=== PATIENT | female | born 1940 | race Caucasian/White ===

== ENCOUNTER 2022-06-09 12:53 | Outpatient (CLI) | payer OTHER, SELFPAY ==
--- NOTE | 2022-06-09 13:20 | CRLHL7_ITS ---
For Patients: As a result of the Cures Act, medical imaging exams and procedure reports are released immediately into your electronic medical record. You may view this report before your referring provider. If you have questions, please contact your health care provider. BILATERAL SCREENING MAMMOGRAM WITH COMPUTER-AIDED DETECTION AND TOMOSYNTHESIS TECHNIQUE: CC and MLO views were obtained. These mammographic images have been obtained using full-field digital technique. These mammographic images were interpreted with the benefit of computer-aided detection. Breast Tomosynthesis was used in this interpretation. COMPARISON FILM: 04/25/21; 04/24/20, 04/04/19 FINDINGS: The breasts are heterogeneously dense, which may obscure small masses IMPRESSION: There is no radiographic evidence for malignancy. ASSESSMENT: BI-RADS Category 1: Negative RECOMMENDATION: Routine screening mammogram in 1 year. A lay language report of this examination will be provided to the patient. Epifanio Harrington M.D. Diagnostic/Musculoskeletal Radiologist [email or web address] GALA/roxi Transcribed: 2:35 p.m. PT/Dictated by: Epifanio Harrington MD @ 06/10/2022 10:31:00 AM (Electronically Signed)
== END 2022-06-09 12:54 | disposition home or self-care (01) ==
PROVIDERS: PCP Family Medicine; Visit Provider Family Medicine
DX: Z12.31 Encounter for screening mammogram for malignant neoplasm of breast (principal); R92.2 Inconclusive mammogram
CPT/HCPCS: 77063; 77067

== ENCOUNTER 2023-05-11 08:45 | Outpatient (RCR) | payer OTHER, SELFPAY | END 2023-08-26 17:28 | disposition home or self-care (01) | PROVIDERS: PCP Family Medicine; Visit Provider Family Medicine | DX: R26.81 Unsteadiness on feet (principal); Z51.89 Encounter for other specified aftercare | CPT/HCPCS: 97110; 97162 ==

== ENCOUNTER 2023-06-15 08:51 | Outpatient (CLI) | payer OTHER, SELFPAY ==
--- NOTE | 2023-06-15 09:15 | CRLHL7_ITS ---
For Patients: As a result of the Cures Act, medical imaging exams and procedure reports are released immediately into your electronic medical record. You may view this report before your referring provider. If you have questions, please contact your health care provider. BILATERAL DIGITAL SCREENING MAMMOGRAM WITH COMPUTER-AIDED DETECTION WITH TOMOSYNTHESIS CLINICAL HISTORY: Routine screening exam. COMPARISON: 06/09/2022, 04/25/2021, 04/24/2020, 04/04/2019. TECHNIQUE: Digital mammogram in CC and MLO projections including computer-aided detection (CAD). BREAST COMPOSITION: There are scattered areas of fibroglandular density. FINDINGS: RIGHT Breast: Focal asymmetric density lateral RIGHT breast 3 cm from the nipple. LEFT Breast: No suspicious findings. IMPRESSION: RIGHT breast asymmetry/mass. RECOMMENDATIONS: Additional mammographic views of the RIGHT breast including 3D spot-compression CC/MLO. RIGHT breast ultrasound may also be required. The [facility] will contact the patient for follow-up. BI-RADS Category 0: Incomplete: Need Additional Imaging Evaluation and/or Prior Mammograms for Comparison A lay language report of this examination will be provided to the patient. Dictated by Rocky Dickerson MD @ 06/15/2023 10:16:29 AM/ALDA:roxi PT/Dictated by: Rocky Dickerson MD @ 06/15/2023 10:17:00 AM (Electronically Signed)
== END 2023-06-15 08:52 | disposition home or self-care (01) ==
PROVIDERS: PCP Family Medicine; Visit Provider Family Medicine
DX: Z12.31 Encounter for screening mammogram for malignant neoplasm of breast (principal); N63.10 Unspecified lump in the right breast, unspecified quadrant
CPT/HCPCS: 77063; 77067

== ENCOUNTER 2023-06-28 09:15 | Outpatient (CLI) | payer OTHER, SELFPAY ==
--- NOTE | 2023-06-28 09:45 | CRLHL7_ITS ---
For Patients: As a result of the Cures Act, medical imaging exams and procedure reports are released immediately into your electronic medical record. You may view this report before your referring provider. If you have questions, please contact your health care provider. DIGITAL DIAGNOSTIC RIGHT MAMMOGRAM USING TOMOSYNTHESIS AND COMPUTER-AIDED DETECTION RIGHT BREAST ULTRASOUND CLINICAL HISTORY: RIGHT breast mass/asymmetry. COMPARISON: 06/28/2023. TECHNIQUE: Digital RIGHT mammogram in two projections. Tomosynthesis and CAD utilized. Real-time ultrasound imaging of RIGHT breast with imaging documentation. BREAST COMPOSITION: There are areas of scattered fibroglandular density. FINDINGS: 3D spot compression CC/MLO RIGHT breast mammogram images submitted. Decreased conspicuity of asymmetric density. Benign vascular calcifications. Targeted RIGHT breast ultrasound performed at 9 o`clock 3 cm from the nipple. In this location, there is a solid heterogeneously hypoechoic nodule with somewhat ill-defined margins and posterior shadowing measuring 7 x 7 x 4 millimeters. IMPRESSION: Suspicious mass RIGHT breast 9 o`clock 3 cm from the nipple measuring 7 millimeters. RECOMMENDATIONS: Ultrasound-guided core needle biopsy. Results and recommendations discussed with the patient. BI-RADS Category 4: Suspicious A lay language report of this examination will be provided to the patient. Dictated by Rocky Dickerson MD @ 06/28/2023 12:40:17 PM junior/Dictated by: Rocky Dickerson MD @ 06/28/2023 12:40:00 PM (Electronically Signed)
--- NOTE | 2023-06-28 10:15 | CRLHL7_ITS ---
For Patients: As a result of the Cures Act, medical imaging exams and procedure reports are released immediately into your electronic medical record. You may view this report before your referring provider. If you have questions, please contact your health care provider. PLEASE SEE DIGITAL DIAGNOSTIC RIGHT MAMMOGRAM PERFORMED SAME DAY CRL:chani wilde/Dictated by: Rocky Dickerson MD @ 06/28/2023 12:40:00 PM (Electronically Signed)
== END 2023-06-28 09:16 | disposition home or self-care (01) ==
LOC: MAMMO 09:15
PROVIDERS: PCP Family Medicine; Visit Provider Family Medicine
DX: N63.10 Unspecified lump in the right breast, unspecified quadrant (principal); R92.8 Other abnormal and inconclusive findings on diagnostic imaging of breast
CPT/HCPCS: 76642; 77065; G0279

== ENCOUNTER 2023-06-30 07:50 | Outpatient (CLI) | payer OTHER, SELFPAY ==
--- NOTE | 2023-06-30 08:15 | CRLHL7_ITS ---
For Patients: As a result of the Century Cures Act, medical imaging exams and procedure reports are released immediately into your electronic medical record. You may view this report before your referring provider. If you have questions, please contact your health care provider. ADDENDUM: Pathology consistent with invasive ductal carcinoma. This is concordant. Appropriate action recommended. Dictated by: Rocky Dickerson MD @07/02/2023 12:22:15 PM / CRL:chani ULTRASOUND-GUIDED BREAST BIOPSY AND POST-BIOPSY DIGITAL MAMMOGRAM FOR BIOPSY MARKER PLACEMENT CLINICAL HISTORY: Suspicious lesion. COMPARISON STUDIES: 06/28/2023. TECHNIQUE: Real-time ultrasound with image documentation was used for targeting the breast lesion. Core biopsy specimens were obtained using an automated gun with a 18-gauge biopsy needle. Post-biopsy CC and ML digital mammograms were obtained to document position of the biopsy marker. CONSENT and TIME OUT: The procedure, risks, and alternatives were explained to the patient and a consent was signed. [place] Protocol was followed including pre-procedure verification that relevant information/documentation was available, reviewed and properly matched to the patient; consent accurate and complete; and equipment and supplies available. Time Out was conducted just prior to starting procedure to verify the four required elements: patient identity, correct side/site marked (if applicable), procedure, relevant images/results properly labeled and displayed (if applicable). PROCEDURE: The patient was positioned supine on the ultrasound table. The breast was prepped with ChloraPrep. 8 cc 1 percent lidocaine used for local anesthesia. Core samples were obtained. A sterile metal biopsy clip was placed percutaneously to dianna the lesion position within the breast. The specimens were placed in 10% formalin and sent to the pathology department. Pressure was held on the biopsy site until all bleeding subsided. The skin incision was closed with Steri-Strips. An ice pack was positioned over the biopsy site. Post-biopsy instructions were reviewed with the patient, and a written copy was given to her. LATERALITY: RIGHT breast. LESION: Hypoechoic shadowing solid nodule measuring 7 x 7 x 4 millimeters at 9 o`clock 3 cm from the nipple. SUSPICION FOR MALIGNANCY: High. NUMBER OF SAMPLES: 5. BIOPSY CLIP SHAPE: Oval. PROXIMITY OF CLIP TO TARGET: Within the lesion. IMPRESSION: Ultrasound-guided breast biopsy. When the pathology report is available, an addendum to this report will be made. ACR not applicable Dictated by Rocky Dickerson MD @ 06/30/2023 9:26:23 AM chani/Dictated by: Rocky Dickerson MD @ 06/30/2023 9:26:00 AM (Electronically Signed)
--- NOTE | 2023-06-30 08:45 | CRLHL7_ITS ---
For Patients: As a result of the Century Cures Act, medical imaging exams and procedure reports are released immediately into your electronic medical record. You may view this report before your referring provider. If you have questions, please contact your health care provider. PLEASE SEE ULTRASOUND-GUIDED RIGHT BREAST BIOPSY PERFORMED SAME DAY CRL:chani wilde/Dictated by: Rocky Dickerson MD @ 06/30/2023 9:26:00 AM (Electronically Signed)
== END 2023-06-30 07:51 | disposition home or self-care (01) ==
PROVIDERS: PCP Family Medicine; Visit Provider Family Medicine
DX: N63.10 Unspecified lump in the right breast, unspecified quadrant (principal); C50.911 Malignant neoplasm of unspecified site of right female breast; R92.8 Other abnormal and inconclusive findings on diagnostic imaging of breast
CPT/HCPCS: 19083; 77065; 88305; 88360; 88361; A4648; A4649

== ENCOUNTER 2023-07-23 06:52 | Day surgery (SDC) | payer OTHER, SELFPAY ==
[2023-07-23 07:10] VITALS: BP 162/85; PULSE 86; RESP 18; TEMP 36.6; O2SAT 96
[2023-07-23 07:15] VITALS: BMI 21.8
[2023-07-23] MEDS: LACTATED RINGERS 1000 ML 1,000 ML 100 ML IV (07:40)
[2023-07-23] MEDS: SODIUM CHLORIDE 0.9 % (FLUSH) 10 ML SYRINGE IVF (07:43)
--- NOTE | 2023-07-23 08:15 | CRLHL7_ITS ---
For Patients: As a result of the Cures Act, medical imaging exams and procedure reports are released immediately into your electronic medical record. You may view this report before your referring provider. If you have questions, please contact your health care provider. BREAST WIRE LOCALIZATION USING ULTRASOUND GUIDANCE CLINICAL HISTORY: RIGHT breast cancer. LATERALITY: RIGHT. LESION: Hypoechoic solid mass RIGHT breast 9 o`clock 3 cm from the nipple measuring 7 x 7 x 4 millimeters. LOCALIZATION WIRE: [place] hookwire. TECHNIQUE: The localization wire was placed using real-time ultrasound guidance with image documentation. Cranial-caudal and medial-lateral digital mammograms were obtained after localization wire placement. CONSENT and TIME OUT: The procedure, risks, and alternatives were explained to the patient and a consent was signed. [place] Protocol was followed including pre-procedure verification that relevant information/documentation was available, reviewed and properly matched to the patient; consent accurate and complete; and equipment and supplies available. Time Out was conducted just prior to starting procedure to verify the four required elements: patient identity, correct side/site marked (if applicable), procedure, relevant images/results properly labeled and displayed (if applicable). PROCEDURE: The skin was prepped with ChloraPrep and 5 cc of 1% lidocaine was injected for local anesthesia. The localization wire was placed within or near the targeted breast lesion using ultrasound guidance. The patient tolerated the procedure well. PROXIMITY OF WIRE TO LESION: The wires located within the lesion adjacent to the clip. IMPRESSION: Successful breast wire localization. ACR not applicable Dictated by Rocky Dickerson MD @ 07/23/2023 11:15:12 AM jj/Dictated by: Rocky Dickerson MD @ 07/23/2023 11:15:00 AM (Electronically Signed)
--- NOTE | 2023-07-23 09:00 | CRLHL7_ITS ---
For Patients: As a result of the Century Cures Act, medical imaging exams and procedure reports are released immediately into your electronic medical record. You may view this report before your referring provider. If you have questions, please contact your health care provider. PLEASE SEE ULTRASOUND-GUIDED RIGHT BREAST WIRE LOCALIZATION PERFORMED SAME DAY CRL:chani wilde/Dictated by: Rocky Dickerson MD @ 07/23/2023 10:07:00 AM (Electronically Signed)
[2023-07-23] MEDS: CEFAZOLIN 1 GM inj IVP (09:30)
--- NOTE | 2023-07-23 10:04 | CRLHL7_ITS ---
For Patients: As a result of the Cures Act, medical imaging exams and procedure reports are released immediately into your electronic medical record. You may view this report before your referring provider. If you have questions, please contact your health care provider. RIGHT BREAST SPECIMEN RADIOGRAPH CLINICAL HISTORY: RIGHT breast cancer. COMPARISON: 06/28/2023. FINDINGS: Two views RIGHT breast specimen submitted. Biopsied mass, biopsy clip and localization wire are present. IMPRESSION: The biopsied mass, biopsy clip and localization wire are present in the specimen. ACR not applicable Dictated by Rocky Dickerson MD @ 07/23/2023 10:32:02 AM jj/Dictated by: Rocky Dickerson MD @ 07/23/2023 10:32:00 AM (Electronically Signed)
[2023-07-23] MEDS: LIDOCAINE 1 % PF 30 ML INJECTION (10:15)
[2023-07-23] MEDS: BUPIVACAINE 0.25% 30 ML INJECTION (10:15)
[2023-07-23 10:37] VITALS: BP 131/81; PULSE 89; RESP 16; TEMP 36.7; O2SAT 94
--- NOTE | 2023-07-23 10:37 | P.ANES_ITS ---
Anesthesia Charges Start Date/Time Anesthesia Start Date: 07/23/23 Anesthesia Start Time: 09:26 Stop Date/Time Anesthesia Stop Date: 07/23/23 Anesthesia Stop Time: 10:35 Summary Extremes of Age - Over 70 or under 1: [employer]MWORK [employer]PENTER
--- NOTE | 2023-07-23 10:50 | PM.GSPRC ---
Operative Note Pre-op diagnosis: Invasive ductal carcinoma, right breast Post-op diagnosis: Same Type of Procedure: Wire localization right breast lumpectomy Indications: Patient is an 82-year-old female with new diagnosis invasive ductal carcinoma. Please see consultation note for full discussion regarding treatment options, as well as recommendations based on NCCN guidelines and choosing wisely protocol for oncologic procedures in older adults. Risks and benefits of operative intervention were discussed at length with the patient. Risks included but was not limited to: Bleeding, infection, risk of damage to surrounding structures, possible need for additional procedures and postoperative complications such as pneumonia, pulmonary emboli or UT. All questions and concerns were addressed with the patient agreeing to proceed. Procedure Description: Prior to arrival in the operating room, the patient was taken to radiology where a wire was placed to localize the previously placed clip. Based on the choosing wisely protocols the NCCN, the decision was made not to pursue a sentinel lymph node biopsy. The patient was then brought to the operating room where anesthesia was induced. The right breast and axilla were prepped and draped in the usual sterile fashion. Timeout was confirmed. Local anesthesia was infiltrated into a transverse incision near the location of the tip of the wire. Using electrocautery, the segment of breast tissue containing the tip of the wire was excised. This was sent for evaluation. Radiology called back and confirmed that the clip and wire were present within the specimen. Pathology then called back and confirmed that the margins were appropriate. The wounds were irrigated and all irrigant suctioned from the wound. Additional local anesthesia was infiltrated. The wounds were then closed in layers using absorbable suture, and Dermbond was placed over the wounds. A double wide Horace wrap was used to apply a compressive dressing. The patient was awakened without incident and taken to PACU in stable condition. Sponge, needle and instrument counts were correct x3 at the termination of the case. The patient was then woken and transported to the recovery area in stable condition. ? The patient tolerated the procedure well. Findings: Wire localized right breast cancer Anesthesia: MAC and local Surgeon: Kate Melton MD Estimated blood loss (mL): 2 Additional Specimen Information: 1. Right breast mass Condition: stable Disposition: same day Date of procedure: 07/23/23 [place] Node Biopsy for Breast Cancer Operation Performed with Curative Intent: Yes Tracers used to Identify sentinel nodes in the upfront surgery (non-neoadjuvant) setting: N/A (No sentinel node, based on choosing wisely guidelines via NCCN) Tracers used to identify sentinel nodes in the neoadjuvant setting: N/A All nodes (colored or non-colored) present at the end of a dye filled lymphatic channel were removed: Not Applicable All significantly radioactive nodes were removed: Not Applicable All palpably suspicious nodes were removed: Not Applicable Biopsy proven positive nodes marked with clips prior to chemotherapy were identified and removed: Not Applicable
[2023-07-23 10:52] VITALS: BP 145/85; PULSE 93; RESP 18; TEMP 36.7; O2SAT 95
[2023-07-23 11:11] VITALS: BP 148/96; PULSE 87; RESP 18; TEMP 36.7; O2SAT 96
[2023-07-23 11:21] VITALS: BP 131/100; PULSE 87; RESP 18; TEMP 36.8; O2SAT 94
[2023-07-23 11:33] VITALS: BP 143/75; PULSE 83; RESP 18; O2SAT 94
== END 2023-07-23 11:49 | disposition home or self-care (01) ==
PROVIDERS: PCP Family Medicine; Visit Provider Surgery
PROC: (CPT 19120; principal; 2023-07-23 09:00)
DX: C50.911 Malignant neoplasm of unspecified site of right female breast (principal)
CPT/HCPCS: 19120; 00400; 19285; 77065; 99100; C1769; J0665; J0690; J2001; J2250; J2405; J2704; J3010; J7120

== ENCOUNTER 2023-08-16 09:16 | Outpatient (CLI) | payer OTHER, SELFPAY ==
--- NOTE | 2023-08-16 10:15 | CRLHL7_ITS ---
For Patients: As a result of the Century Cures Act, medical imaging exams and procedure reports are released immediately into your electronic medical record. You may view this report before your referring provider. If you have questions, please contact your health care provider. Indication: RIGHT BREAST CA, PALPABLE LUMP RIGHT AXILLA Technique: Grayscale and color Doppler ultrasound of the right axilla. Comparison: 06/15/2023 Findings: Normal right axillary lymph nodes are present. Lymph nodes measure 1.5 x 0.6 x 1.3 cm and 1.0 x 0.4 x 0.8 cm. No abnormal vascularity. Normal central fatty lisbet noted. Impression: No suspicious findings. Dictated by Rocky Dickerson MD @ 08/16/2023 10:07:23 AM (Electronically Signed)
== END 2023-08-16 09:17 | disposition home or self-care (01) ==
LOC: US 09:16
PROVIDERS: PCP Family Medicine; Visit Provider Internal Medicine Hematology & Oncology
DX: C50.911 Malignant neoplasm of unspecified site of right female breast (principal); R22.31 Localized swelling, mass and lump, right upper limb
CPT/HCPCS: 76882

== ENCOUNTER 2023-08-19 06:08 | Day surgery (SDC) | payer OTHER, SELFPAY ==
[2023-08-19] VITALS (8 sets, daily range): BP systolic 162–188; BP diastolic 91–107; PULSE 77–94; RESP 16–20; TEMP 36.5–36.9; O2SAT 95–100; BMI 21.6
[2023-08-19] MEDS: ETHYL CHLORIDE 1 APPLICATION 1 APPLIC TOPICAL (07:16)
[2023-08-19] MEDS: BUPIVACAINE 0.5% 30 ML 5 ML INJECTION (07:16)
[2023-08-19] MEDS: lidocaine HCL 2 % MULTIDOSE 20 ML VIAL 12 ML INJECTION (07:16)
--- NOTE | 2023-08-19 07:38 | PM.ORPRC ---
Procedure Note Date of procedure: 08/19/23 Procedure: Preop diagnosis: Left upper extremity carpal tunnel syndrome Postop diagnosis: Left upper extremity carpal tunnel syndrome Procedure: Left upper extremity carpal tunnel release Anesthesia: Local Surgeon: Armen Amanda MD health center assistant: Sofia Hanks PA-C EBL: 5 mL Complications: None Specimens: None Drains: None Indications: The patient has a history of left upper extremity carpal tunnel syndrome symptoms. Despite appropriate nonoperative management consisting of nighttime bracing and occupational therapy they continue to have symptoms. Operative intervention was recommended. The risks, benefits alternatives and expected outcomes were discussed in detail. These included but were not limited to: Infection, bleeding, injury to blood vessel or nerve, venous thromboembolism. All questions were answered to their satisfaction. The patient was placed supine on the operating room table. Local anesthesia was established with 0.5% Marcaine without epinephrine and 2% lidocaine without epinephrine. The hand was prepped and draped in usual sterile fashion. The limb was elevated the forearm pneumatic tourniquet was inflated to 250 mm of mercury. A longitudinal incision was made centered over the radial border of the ring finger at the base of the palm. Subcutaneous dissection was sharply taken through the palmar fascia and the palmaris brevis to the transverse carpal ligament. The ligament was divided in line with the incision. Proximal and distal dissection was carried with tenotomy and Metzenbaum scissors for a wide decompression of the carpal tunnel. The tourniquet was released, bleeding was controlled with direct pressure. The wound was closed with a 3-0 nylon. A bulky dry dressing was applied, sponge and needle counts were correct x 2. The patient tolerated the procedure well, there were no apparent complications. They were sent to same day surgery in satisfactory condition. Plan: Use of the hand as tolerates. Discontinue the intraoperative dressing on postoperative day 3 and may get the wound wet as tolerates. Follow up in the office in 2 weeks for a wound check and suture removal.
--- NOTE | 2023-08-19 07:41 | SUR.OPER ---
PATIENT QUESTIONS ANSWERED SATISFACTORILY PREOPERATIVELY. PATIENT BROUGHT TO OR #3 PER WHEELCHAIR. Patient positioned supine on OR #3 bed. The perioperative team supported right arm bilaterally on arm boards. Final approval of positioning by surgeon.
== END 2023-08-19 08:10 | disposition home or self-care (01) ==
PROVIDERS: PCP Family Medicine; Visit Provider Orthopaedic Surgery
PROC: (CPT 64721; principal; 2023-08-19 07:15)
DX: G56.02 Carpal tunnel syndrome, left upper limb (principal)
CPT/HCPCS: 64721; J0665

== ENCOUNTER 2023-09-15 12:31 | Outpatient (CLI) | payer OTHER, SELFPAY ==
--- NOTE | 2023-09-15 13:30 | CRLHL7_ITS ---
For Patients: As a result of the Century Cures Act, medical imaging exams and procedure reports are released immediately into your electronic medical record. You may view this report before your referring provider. If you have questions, please contact your health care provider. DXA BONE MINERAL DENSITY STUDY Reason for exam: Malignant neoplasm of unspecified site. Current height (in): 63. Weight (lb): 122. Menopause age: 56. Ethnicity: White. 1. Have you had a previous hip or vertebral fracture? No. 2. Have you had any fractures during your adult life which did not result from significant trauma (e.g., auto accident)? No. 3. Did either of your parents have a hip fracture? No. 4. Do you smoke? No. 5. Have you ever taken Glucocorticoids? No. 6. Do you have rheumatoid arthritis? No. 7. Do you have secondary osteoporosis? No. 8. Do you drink 3 or more alcoholic drinks per day? No. 9. Are you being treated for osteoporosis? No. 10. Have you ever taken any of the following medications: Actonel, Evista, Fosamax, Miacalcin, Reclast, Boniva, Forteo, HRT (i.e., estrogen/hormone therapy), Protelos, Prolia, Vitamin D, Calcium, other ??? please specify. ANSWER: Yes, vitamin D. 11. Do you have any of the following medical conditions: Anorexia or bulimia, asthma or emphysema, end stage renal disease, hyperparathyroidism, any seizure disorders, cancer, inflammatory bowel diseases, hysterectomy, other ??? please specify. ANSWER: Yes, cancer and hysterectomy. 12. What was your maximum height (inches)? 65. 13. Do you perform weight bearing exercise regularly? No. 14. Do you regularly consume dairy products? No. 15. Do you drink caffeinated beverages? Yes. If female: 16. At what age did your period start? 15. 17. Are you premenopausal? No. 18. How many full-term pregnancies have you had? 2. 19. Have you ever missed your period for more than 6 months in a row (not including or menopause)? No. TECHNIQUE: Bone mineral density study was performed using the [employer]. FINDINGS: The results of the study expressed as bone mineral density (BMD) are as follows: Lumbar spine L1 to L3: BMD: 1.324 g/cm2. T-score: 2.8. Z-score: 5.5 Neck Left: BMD: 1.033 g/cm2. T-score: 1.7. Z-score: 4.1 Right: BMD: 1.113 g/cm2. T-score: 2.4. Z-score: 4.8 Total Left: BMD: 0.988 g/cm2. T-score: 0.4. Z-score: 2.6 Right: BMD: 0.994 g/cm2. T-score: 0.4. Z-score: 2.6 IMPRESSION: Normal bone density. Rocky Dickerson M.D. Diagnostic Radiologist [email or web address] JULIO/[email or web address] jj/Dictated by: Rocky Dickerson MD @ 09/15/2023 3:00:00 PM (Electronically Signed)
== END 2023-09-15 12:32 | disposition home or self-care (01) ==
LOC: RAD 12:31
PROVIDERS: PCP Family Medicine; Visit Provider Internal Medicine Hematology & Oncology
DX: C50.919 Malignant neoplasm of unspecified site of unspecified female breast (principal)
CPT/HCPCS: 77080

== ENCOUNTER 2023-11-11 15:49 | Outpatient (RCR) | payer OTHER, SELFPAY | END 2024-02-05 23:59 | disposition home or self-care (01) | LOC: CCIC 15:49 | PROVIDERS: PCP Family Medicine; Visit Provider Internal Medicine Hematology & Oncology | DX: C50.911 Malignant neoplasm of unspecified site of right female breast (principal); Z17.0 Estrogen receptor positive status [ER+]; Z79.811 Long term (current) use of aromatase inhibitors; R32 Unspecified urinary incontinence; Z85.41 Personal history of malignant neoplasm of cervix uteri | CPT/HCPCS: 99202; 99204; 99212; 99213; 99214; G0463 ==

== ENCOUNTER 2024-03-13 09:20 | Outpatient (RCR) | payer OTHER, SELFPAY | END 2024-09-09 23:59 | disposition home or self-care (01) | LOC: CCIC 09:20 | PROVIDERS: PCP Family Medicine; Visit Provider Physician Assistant | DX: C50.911 Malignant neoplasm of unspecified site of right female breast (principal); Z17.0 Estrogen receptor positive status [ER+]; Z79.811 Long term (current) use of aromatase inhibitors; Z85.41 Personal history of malignant neoplasm of cervix uteri | CPT/HCPCS: 99214; G0463 ==

== ENCOUNTER 2024-07-05 14:35 | Outpatient (CLI) | payer OTHER, SELFPAY ==
--- NOTE | 2024-07-05 15:20 | CRLHL7_ITS ---
For Patients: As a result of the Century Cures Act, medical imaging exams and procedure reports are released immediately into your electronic medical record. You may view this report before your referring provider. If you have questions, please contact your health care provider. BILATERAL SCREENING MAMMOGRAM WITH COMPUTER-AIDED DETECTION AND TOMOSYNTHESIS TECHNIQUE: CC and MLO views were obtained. These mammographic images have been obtained using full-field digital technique. These mammographic images were interpreted with the benefit of computer-aided detection. Breast Tomosynthesis was used in this interpretation. COMPARISON FILM: 06/28/23, 06/15/23, 06/09/22. FINDINGS: The breasts are heterogeneously dense, which may obscure small masses. IMPRESSION: There is no radiographic evidence for malignancy. ASSESSMENT: BI-RADS Category 1: Negative RECOMMENDATION: Routine screening mammogram in 1 year. A lay language report of this examination will be provided to the patient. Rocky Dickerson M.D. Diagnostic Radiologist [email or web address] SP/Dictated by: Rocky Dickerson MD @ 07/14/2024 9:00:00 AM (Electronically Signed)
== END 2024-07-05 14:36 | disposition home or self-care (01) ==
LOC: MAMMO 14:35
PROVIDERS: PCP Family Medicine; Visit Provider Family Medicine
DX: Z12.31 Encounter for screening mammogram for malignant neoplasm of breast (principal); R92.333 Mammographic heterogeneous density, bilateral breasts
CPT/HCPCS: 77063; 77067

== ENCOUNTER 2024-09-11 09:02 | Outpatient (RCR) | payer OTHER, SELFPAY | END 2025-03-10 23:59 | disposition home or self-care (01) | LOC: CCIC 09:02 | PROVIDERS: PCP Family Medicine; Visit Provider Physician Assistant | DX: C50.911 Malignant neoplasm of unspecified site of right female breast (principal); Z17.0 Estrogen receptor positive status [ER+]; Z79.811 Long term (current) use of aromatase inhibitors; Z85.41 Personal history of malignant neoplasm of cervix uteri | CPT/HCPCS: 99214; G0463 ==

== ENCOUNTER 2025-03-13 08:41 | Outpatient (RCR) | payer MEDICARE, SELFPAY | END 2025-09-09 23:59 | disposition home or self-care (01) | LOC: CCIC 08:41 | PROVIDERS: PCP Family Medicine; Visit Provider Internal Medicine Hematology & Oncology | DX: C50.911 Malignant neoplasm of unspecified site of right female breast (principal); Z17.0 Estrogen receptor positive status [ER+]; Z79.811 Long term (current) use of aromatase inhibitors; L91.8 Other hypertrophic disorders of the skin | CPT/HCPCS: 99214; G0463 ==

== ENCOUNTER 2025-06-23 08:55 | Outpatient (CLI) | payer MEDICARE, SELFPAY | END 2025-06-23 08:56 | disposition home or self-care (01) | LOC: NFLDREF 06-24 18:08 | PROVIDERS: PCP Family Medicine; Referring Provider Family Medicine; Visit Provider Family Medicine | DX: R30.0 Dysuria (principal); N39.0 Urinary tract infection, site not specified | CPT/HCPCS: 87086 ==

== ENCOUNTER 2025-09-26 12:29 | Outpatient (CLI) | payer MEDICARE, SELFPAY ==
--- NOTE | 2025-09-26 13:00 | CRLHL7_ITS ---
For Patients: As a result of the Century Cures Act, medical imaging exams and procedure reports are released immediately into your electronic medical record. You may view this report before your referring provider. If you have questions, please contact your health care provider. DXA BONE MINERAL DENSITY STUDY Current height (in): 63. Weight (lb): 120. Menopause age: 56. Ethnicity: White. 1. Have you had a previous hip or vertebral fracture? No. 2. Have you had any fractures during your adult life which did not result from significant trauma (e.g., auto accident)? No. 3. Did either of your parents have a hip fracture? No. 4. Do you smoke? No. 5. Have you ever taken Glucocorticoids? No. 6. Do you have rheumatoid arthritis? No. 7. Do you have secondary osteoporosis? No. 8. Do you drink 3 or more alcoholic drinks per day? No. 9. Are you being treated for osteoporosis? No. 10. Have you ever taken any of the following medications: Actonel, Evista, Fosamax, Miacalcin, Reclast, Boniva, Forteo, HRT (i.e. estrogen/hormone therapy), Protelos, Prolia, Vitamin D, Calcium, other ??? please specify. ANSWER: Yes, calcium. 11. Do you have any of the following medical conditions: Anorexia or bulimia, asthma or emphysema, end stage renal disease, hyperparathyroidism, any seizure disorders, cancer, inflammatory bowel diseases, hysterectomy, other ??? please specify. ANSWER: Yes, cancer, hysterectomy. 12. What was your maximum height (inches)? 65. 13. Do you perform weight bearing exercise regularly? No. 14. Do you regularly consume dairy products? No. 15. Do you drink caffeinated beverages? Yes. 16. At what age did your period start? 15. 17. Are you premenopausal? No. 18. How many full term pregnancies have you had? 2. 19. Have you ever missed your period for more than 6 months in a row (not including or menopause)? No. TECHNIQUE: Bone mineral density study was performed using the [facility]. FINDINGS: The results of the study expressed as bone mineral density (BMD) are as follows: Lumbar spine L1 to L3: BMD: 1.345 g/cm2. T-score: 3.0. Z-score: 5.7. Neck Left: BMD: 1.002 g/cm2. T-score: 1.4. Z-score: 3.9. Right: BMD: 1.031 g/cm2. T-score: 1.6. Z-score: 4.1. Total Left: BMD: 1.052 g/cm2. T-score: 0.9. Z-score: 3.2. Right: BMD: 1.079 g/cm2. T-score: 1.1. Z-score: 3.4. IMPRESSION: Normal bone density. *Comparison exams done prior to 03/2020 were performed on different unit, [employer]. COMPARISON: Compared with scan of 09/15/2023, the bone mineral density has increased by 1.6 percent at the spine and increased by 7.5 percent at the hip. Rocky Dickerson M.D. Diagnostic Radiologist [email or web address] [place]/Dictated by: Rocky Dickerson MD @ 09/26/2025 1:42:00 PM (Electronically Signed)
== END 2025-09-26 12:30 | disposition home or self-care (01) ==
LOC: RAD 12:29
PROVIDERS: PCP Family Medicine; Visit Provider Internal Medicine Hematology & Oncology
DX: C50.919 Malignant neoplasm of unspecified site of unspecified female breast (principal); N95.9 Unspecified menopausal and perimenopausal disorder
CPT/HCPCS: 77080

== ENCOUNTER 2025-10-05 09:39 | Outpatient (CLI) | payer MEDICARE, SELFPAY ==
--- NOTE | 2025-10-05 10:15 | CRLHL7_ITS ---
For Patients: As a result of the Century Cures Act, medical imaging exams and procedure reports are released immediately into your electronic medical record. You may view this report before your referring provider. If you have questions, please contact your health care provider. INDICATION: BILATERAL SCREENING MAMMOGRAM, ASYMPTOMATIC 85 Y/O FEMALE COMPARISON: 07/05/2024, 06/15/2023, 06/09/2022 TECHNIQUE: Digital mammogram in CC and MLO projections including computer-aided detection (CAD) and tomosynthesis. BREAST COMPOSITION: The breasts are heterogeneously dense, which may obscure small masses. FINDINGS: No suspicious findings. ASSESSMENT: BI-RADS 1 Negative RECOMMENDATION: Annual screening mammogram. A lay language report of this examination will be provided to the patient. Dictated by: Maribel Andre MD @ 10/05/2025 14:38:24 (Electronically Signed)
== END 2025-10-05 09:40 | disposition home or self-care (01) ==
LOC: MAMMO 09:39
PROVIDERS: PCP Family Medicine; Visit Provider Family Medicine
DX: Z12.31 Encounter for screening mammogram for malignant neoplasm of breast (principal); R92.333 Mammographic heterogeneous density, bilateral breasts
CPT/HCPCS: 77063; 77067